=== PATIENT | male | born 1970 | race Caucasian/White ===

== ENCOUNTER 2018-06-17 03:38 | Emergency (ER) | payer OTHER, SELFPAY ==
[2018-06-17 03:46] VITALS: BP 195/120; PULSE 84; RESP 18; TEMP 36.8; O2SAT 100; BMI 34.0
--- NOTE | 2018-06-17 03:48 | ED_ITS ---
HPI - General Adult General Chief complaint: Back Pain/Injury Stated complaint: SEVERE BACK PAIN Time Seen by Provider: 06/17/18 03:39 Source: patient Mode of arrival: ambulatory Limitations: no limitations History of Present Illness HPI narrative: Otherwise healthy 48-year-old male here for evaluation of right- sided flank and abdominal pain. Stated that last evening and just did not feel very well. Had vague right-sided pain. Some nausea. No vomiting. Has episodes where he gets more intense then decreases. Took some Motrin just prior to arrival. States he has had some urinary hesitancy. No prior history kidney stones. No fevers. No rashes. No prior abdominal surgeries. Related Data Previous Rx's Medication Instructions Recorded hydrocodone-acetaminophen [[place]] 1 tab PO Q4-6H PRN #7 tab 06/17/18 ondansetron 4 mg PO Q6-8H PRN #14 tab 06/17/18 Allergies Allergy/AdvReac Type Severity Reaction Status Date / Time NEOPRENE Allergy Severe HIVES AT Uncoded 10/06/17 12:14 CONTACT SITE PENICILLIN Allergy Severe RASH AND Uncoded 10/06/17 12:14 HIVES ALL OVER BODY Review of Systems Constitutional Denies fever(s) Cardiovascular Denies chest pain and Denies dyspnea Respiratory Denies dyspnea Gastrointestinal Gastrointestinal: Reports abdominal pain, Reports nausea and Denies vomiting Genitourinary Denies dysuria, Reports flank pain and Reports urinary hesitancy Integumentary/Breasts Denies rash PFSH Medical History Healthy adult (Acute) Surgical History No pertinent past surgical history (Acute) Social History Smoking Status: Never smoker Exam Initial Vital Signs Initial Vital Signs: Vital Signs Temperature 98.2 F 06/17/18 03:46 Pulse Rate 84 06/17/18 03:46 Respiratory Rate 18 06/17/18 03:46 Blood Pressure 195/120 H 06/17/18 03:46 Pulse Oximetry 100 06/17/18 03:46 Const General: cooperative, healthy appearing, well developed, well groomed and No acute distress Orientation: alert and awake HENMT Head: normal to inspection and normocephalic Resp Effort & Inspection: normal respiratory effort Auscultation: clear to auscultation bilaterally Cardio Rate: regular rate Rhythm: regular rhythm Pulses: radial pulses present GI Inspection: non-distended Palpation: soft and No tender Back/Spine/Pelvis Back: No CVA tenderness Skin Rashes: no rashes Neuro General: alert and awake Extrem General: normal to inspection and capillary refill normal Psych Appearance: grossly normal and well kempt Course Orders Ordered: ED Orders 06/17/18 03:50 Urine Microscopic Stat 06/17/18 03:58 CT kidney ureter bladder (KUB) Stat 06/17/18 04:10 Basic Metabolic Panel Stat Complete Blood Count AUTO DIFF Stat Discontinued Medications Lidocaine HCl 7.8 ml/ Sodium (Chloride) 57.8 mls @ 346.8 mls/hr IV NOW ONE Stop: 06/17/18 04:39 Last Infusion: 06/17/18 05:09 Dose: 0 mls/hr Admin: 06/17/18 04:53 Dose: 346.8 mls/hr Ketorolac Tromethamine (Toradol) 30 mg IV NOW ONE Stop: 06/17/18 04:39 Last Admin: 06/17/18 04:42 Dose: 30 mg Ondansetron HCl (Zofran) 4 mg IV NOW ONE Stop: 06/17/18 04:39 Last Admin: 06/17/18 04:42 Dose: 4 mg Vital Signs - 8 hr 06/17/18 03:46 06/17/18 04:32 06/17/18 05:10 Temperature 98.2 F Pulse Rate 84 78 Respiratory Rate 18 16 Blood Pressure 195/120 H Blood Pressure [Right Arm] 174/104 H 157/108 H Pulse Oximetry 100 98 Medical Decision Making Lab Data Lab results reviewed: Yes I reviewed the patient's lab results. Result diagrams: 06/17/18 04:10 06/17/18 04:10 Lab Results 06/17/18 06/17/18 06/17/18 Range/Units 03:50 04:10 04:10 WBC 11.6 H (4.5-11.0) X10^3/uL RBC 5.39 (4.5-5.9) X10^6/uL Hgb 16.0 (13.5-17.5) g/dL Hct 47.4 (41-53) % MCV 87.9 (80-100) fL MCH 29.6 (26-34) PG MCHC 33.7 (30-36) % RDW 13.6 (11.6-14.8) % Plt Count 220 (150-400) X10^3/uL Neut % (Auto) 74.0 (50-75) % Lymph % (Auto) 13.0 L (25-40) % [place] % (Auto) 10.3 (3-14) % Eos % (Auto) 2.3 (2-4) % Baso % (Auto) 0.4 (0-2) % Neut # (Auto) 8600 H (8239-7988) /uL Sodium 142 (137-145) mmol/L Potassium 4.1 (3.4-5.1) mmol/L Chloride 105 (98-107) mmol/L Carbon Dioxide 24 (22-32) mmol/L BUN 24 H (9-20) mg/dL Creatinine 1.30 H (0.66-1.25) mg/dL Estimated GFR 58.9 L (>60) mL/min BUN/Creatinine Ratio 18.5 (6-22) Glucose 109 H (70-100) mg/dL Calcium 9.6 (8.4-10.2) mg/dL Urine RBC 1-5/hpf (0-5/HPF) Urine WBC None seen (0-5/HPF) Urine Bacteria None seen (None) Ur Culture Indicated? Cult not indicated Micro UA Comment Not Reportable Urine Dip Bedside Urine Glucose Negative Bedside Urine Bilirubin - Negative Bedside Urine Ketone - Negative Urine Specific [place] 1.025 Bedside Urine Occult Blood ++ Bedside Urine pH 6.0 Bedside Urine Urobilinogen - Negative Bedside Urine Nitrite - Negative Bedside Urine Leukocytes - Negative Esterase Point of care testing: Urine Dip Bedside Urine Glucose Negative Bedside Urine Bilirubin - Negative Bedside Urine Ketone - Negative Urine Specific [place] 1.025 Bedside Urine Occult Blood ++ Bedside Urine pH 6.0 Bedside Urine Urobilinogen - Negative Bedside Urine Nitrite - Negative Bedside Urine Leukocytes - Negative Esterase Imaging Data CT scan - abdomen: Radiologist's impression: 7 mm mild to moderate obstructing stone of the right mid ureter. Additional nonobstructing stone in the right kidney. Bilateral renal cysts. Apparent esophageal wall thickening may be artifact, cannot rule out esophagitis. Diverticulosis without diverticulitis. Normal appendix MDM Narrative Medical decision making narrative: CT scan shows right-sided mid ureter stone. This does fit his symptoms. His blood in his urine but no signs of infection. Has a slight bump in his creatinine. I do not feel that an urgent consult to Urology is warranted. He was given a strainer in a cup to see if he can catch the stone at home. Will send home with nausea medication and pain medication. He was given return precautions. He expressed understanding and agreement with plan. Discharge Plan Departure Patient Disposition: Home Clinical Impression: Renal colic Instructions: DI for Kidney Stones Activity Restrictions/Additional Instructions: Use the nausea medication and the pain medication as directed. Expect some discomfort as the stone makes its way down into your bladder and then out. Return to the emergency department for any new symptoms, fevers, pain that is not controlled, vomiting that is not controlled, inability to urinate or any other concerning symptoms. Prescriptions: New hydrocodone-acetaminophen [[place]] 5-325 mg tablet 1 tab PO Q4-6H PRN (Reason: pain) Qty: 7 RF: 0 ondansetron 4 mg tablet,disintegrating 4 mg PO Q6-8H PRN (Reason: nausea and vomiting) Qty: 14 RF: 0
--- NOTE | 2018-06-17 03:58 | DI.CT.S_ITS ---
PROCEDURE: CT KIDNEY URETER BLADDER (KUB) INDICATIONS: Right sided pain concern for stones TECHNIQUE: Noncontrast 5 mm thick sections acquired from the diaphragms to the symphysis. 5 mm thick coronal and sagittal reformats were then performed. For radiation dose reduction, the following was used: automated exposure control, adjustment of mA and/or kV according to patient size. COMPARISON: None. FINDINGS: Image quality: Excellent. Lung bases: Lung bases are clear. Heart size is normal. There is mild thickening of the distal esophagus. Urinary system: There are multiple bilateral renal cysts, the largest measuring up to 3.9 cm and the right kidney. There is mild right perinephric fat stranding. There is a 7 mm obstructing stone within the mid right ureter, resulting in moderate right hydronephrosis. There is an additional punctate nonobstructing nephroliths in the inferior right kidney. Bladder is unremarkable. Other solid organs: Liver is normal in size. Gallbladder is unremarkable. Pancreas is normal in contours. Spleen is normal in size. No adrenal nodules. Peritoneum and bowel: There is colonic diverticulosis without evidence of acute diverticulitis. Unenhanced bowel loops demonstrate normal wall thickness and caliber. No free fluid or air. Normal and is best seen on axial image 62 of series 2. Nodes and vessels: No retroperitoneal or mesenteric adenopathy by size criteria. Aorta and inferior vena cava are normal in caliber. Abdominal wall: There is a small 1.0 cm fat-containing umbilical hernia. Pelvis: No free pelvic fluid. There are small left greater than right fat-containing inguinal hernias. Bones: Mild multilevel degenerative changes of the spine. IMPRESSION: 1. 7 mm obstructing stone in the mid right ureter resulting in moderate right hydronephrosis. Additional punctate nonobstructing nephroliths in the inferior pole of the right kidney. 2. Mild distal esophageal wall thickening may be artifactual, but cannot rule out esophagitis. This report is concordant with the overnight [facility] preliminary radiology report of Dr. Maria Fernanda Estrella. Dictated by: Yaw Grossman M.D. on 06/17/2018 at 10:38 Approved by: Yaw Grossman M.D. on 06/17/2018 at 10:45
[2018-06-17 04:00] LABS: Bacteria Urine None Seen; WBC Urine None Seen (0-5/HPF)
[2018-06-17 04:10] LABS: Culture Indicated Urine Cult Not Indicated; RBC Urine 1-5/HPF (0-5/HPF)
[2018-06-17 04:21] LABS: Add Manual Diff / Slide Review NO; Basophils Percent Auto 0.4 % (0-2); Eosinophils Percent Auto 2.3 % (2-4); Hematocrit 47.4 % (41-53); Mean Corpuscular HGB Conc 33.7 % (30-36); Mean Corpuscular Hemoglobin 29.6 PG (26-34); Mean Corpuscular Volume 87.9 fL (80-100); Monocytes Percent Auto 10.3 % (3-14); Neutrophils Absolute Auto 8600 /uL (1500-7000); Platelet Count 220 X10^3/uL (150-400); Red Blood Cell Count 5.39 X10^6/uL (4.5-5.9); Red Cell Distribution Width 13.6 % (11.6-14.8); White Blood Cell Count 11.6 X10^3/uL (4.5-11.0)
[2018-06-17 04:32] VITALS: BP 174/104
[2018-06-17] MEDS: KETOROLAC 60 MG/2 ML VIAL 30 MG IV (04:42)
[2018-06-17] MEDS: ONDANSETRON 4 MG/2 ML INJ IV (04:42)
[2018-06-17 04:45] LABS: Blood Urea Nitrogen 24 mg/dL (9-20); Carbon Dioxide 24 mmol/L (22-32); Chloride 105 mmol/L (98-107); Potassium 4.1 mmol/L (3.4-5.1); Sodium 142 mmol/L (137-145)
[2018-06-17 04:46] LABS: BUN Creatinine Ratio 18.5 (6-22); Calcium 9.6 mg/dL (8.4-10.2); Estimated Glomerular Filt Rate 58.9 mL/min (>60); Glucose 109 mg/dL (70-100); HEMOLYSIS < 15 (0-50)
[2018-06-17] MEDS: LIDOCAINE 2% 7.8 ML in SODIUM CHLORIDE 0.9% 50 ML 346.8 ML IV (04:53)
[2018-06-17 05:10] VITALS: BP 157/108; PULSE 78; RESP 16; O2SAT 98
[2018-06-17 05:41] VITALS: BP 159/103; PULSE 73; RESP 16; TEMP 36.9; O2SAT 98
== END 2018-06-17 05:43 | disposition home or self-care (01) ==
PROVIDERS: Emergency Provider Emergency Medicine
DX: N23 Unspecified renal colic (principal)
CPT/HCPCS: 74176; 80048; 81003; 81015; 85025; 96365; 96375; 99283; 99284; J1885; J2405

== ENCOUNTER → 2018-07-11 14:32 | Outpatient (CLI) | payer OTHER, SELFPAY ==
--- NOTE | 2018-07-11 | DI.CT.S_ITS ---
PROCEDURE: CT KIDNEY URETER BLADDER (KUB) INDICATIONS: Calculus of ureter TECHNIQUE: Noncontrast 5 mm thick sections acquired from the diaphragms to the symphysis. 5 mm thick coronal and sagittal reformats were then performed. For radiation dose reduction, the following was used: automated exposure control, adjustment of mA and/or kV according to patient size. COMPARISON: [facility], CT, CT KIDNEY URETER BLADDER (KUB), 06/17/2018, 3:58. FINDINGS: Image quality: Excellent. Lung bases: Lung bases are clear. Heart size is normal. Urinary system: Both kidneys are normal in size. No kidney stones are found within the collecting system of either kidney currently but there is moderate hydronephrosis and hydroureter on the right extending to an impacted distal ureteral stone, now located more inferiorly within the right ureter below the area of the junction of the middle and distal thirds of the right ureter. This calculus is better visualized than on the prior study and measures up to 6 x 8 mm. A small immediately adjacent 1.5 mm calculus can be seen just above the dominant calculus. No left-sided hydronephrosis or perinephric fat stranding. the left ureter appearsnon-dilated throughout its expected course. Bladder wall thickness is normal; no calcified bladder stones. Note is made of a exophytic lateral right mid kidney renal cortical rounded structure that is higher in density than the urine within the dilated collecting system. This was previously present and measures up to 3.4 cm. The calculus measures 905 Hounsfield units. Other solid organs: Liver is normal in size. Gallbladder appears normal. Pancreas is normal in contours. Spleen is normal in size. No adrenal nodules. Peritoneum and bowel: Unenhanced bowel loops demonstrate normal wall thickness and caliber. No free fluid or air. Nodes and vessels: No retroperitoneal or mesenteric adenopathy by size criteria. Aorta and inferior vena cava are normal in caliber. Abdominal wall: No ventral hernias. Pelvis: No free pelvic fluid. No inguinal hernias or adenopathy. Bones: No suspicious bony lesions. No vertebral body compression fractures. IMPRESSION: The calculus within the right ureter is now longitudinally oriented and better measured, documented as 6 x 8 mm, and with the radiodensity of 905 Hounsfield units. A stone of this size generally will not pass spontaneously without urologic intervention. Urologist consultation is recommended. The stone has only slightly migrated inferiorly from its position 06/17/18. As discussed above there is a 1.5 mm calculus immediately adjacent to the proximal tip of the impacted calculus, which is nonobstructive. Moderate hydronephrosis and hydroureter on the right remains present. The right mid kidney contains an exophytic 3.4 cm rounded structure that clearly is higher than urine in the radiodensity and might represent coincidental finding of a complex cyst or even a cystic neoplasm. Ultrasound evaluation at this time is recommended. Followup contrast enhanced CT or MR scan may become necessary. Dictated by: Paulo Saenz M.D. on 07/11/2018 at 16:22 Approved by: Paulo Saenz M.D. on 07/11/2018 at 16:48
== END ==
PROVIDERS: Family Provider Urology; PCP Internal Medicine; Visit Provider Internal Medicine
DX: N13.2 Hydronephrosis with renal and ureteral calculous obstruction (principal)
CPT/HCPCS: 74176

== ENCOUNTER → 2018-09-09 10:00 | Outpatient (CLI) | payer OTHER, SELFPAY ==
--- NOTE | 2018-09-09 | DI.CT.S_ITS ---
PROCEDURE: CT ABDOMEN WO/W CON INDICATIONS: Other specified disorders of kidney and ureter TECHNIQUE: Optional 5 mm thick noncontrast images acquired from the diaphragm to the iliac crests. After the administration of intravenous contrast, 5 mm thick images again acquired from the diaphragm to the iliac crests in the arterial and urographic phases. 5 mm thick coronal and sagittal reformats were then acquired. For radiation dose reduction, the following was used: automated exposure control, adjustment of mA and/or kV according to patient size. COMPARISON: [facility], CT, CT KIDNEY URETER BLADDER (KUB), 07/11/2018, 14:31. [facility], CT, CT KIDNEY URETER BLADDER (KUB), 06/17/2018, 3:58. FINDINGS: Image quality: Excellent. Lung bases: Lung bases are clear. Heart size is normal. Genitourinary: This is a 3.5 x 4.0 cm cyst in the mid zone of the right kidney, which demonstrates CT density 16 HU. There is subtle minimal nodularity in the clavicle no enhancement consistent with a Bosniak 2F lesion. Smaller cysts are present in kidneys bilaterally with CT density ~ 10 HU and demonstrate no postcontrast enhancement. Other solid organs: Liver is normal in size and enhancement. Gallbladder is normal. Biliary system is non dilated. Pancreas enhances normally. Spleen is normal in size and enhancement. No adrenal nodules. Peritoneum and bowel: Unenhanced bowel loops are normal in wall thickness and caliber. No free fluid or air. Nodes and vessels: No retroperitoneal or mesenteric adenopathy by size criteria. Aorta and inferior vena cava are normal in caliber. Bones: No suspicious bony lesions. No vertebral body compression fractures. Miscellaneous: No ventral hernias. IMPRESSION: 1. A 3.5 x 4.0 cm Bosniak category 2F cyst in the mid zone of the right kidney. A followup CT is recommended in 6-12 months 2. Smaller benign cysts are noted in kidneys bladder. Dictated by: Ros Del Toro M.D. on 09/09/2018 at 12:50 Approved by: Ros Del Toro M.D. on 09/09/2018 at 13:59
== END ==
PROVIDERS: PCP Internal Medicine; Visit Provider Urology
DX: N28.89 Other specified disorders of kidney and ureter (principal); N28.1 Cyst of kidney, acquired
CPT/HCPCS: 74170; Q9967

== ENCOUNTER → 2019-03-17 07:46 | Outpatient (CLI) | payer OTHER, SELFPAY ==
[2019-03-17 09:35] LABS: Cholesterol 159 mg/dL (140-199); HDL Cholesterol 32 mg/dL (40-60); LDL Cholesterol Calculated 109 mg/dL (<100); Triglycerides 89 mg/dL (35-150)
== END ==
PROVIDERS: PCP Internal Medicine; Visit Provider Internal Medicine
DX: Z13.220 Encounter for screening for lipoid disorders (principal)
CPT/HCPCS: 80061

== ENCOUNTER → 2019-08-11 09:21 | Outpatient (CLI) | payer OTHER, SELFPAY ==
[2019-08-11 09:50] LABS: BUN Creatinine Ratio 21.1 (6-22); Blood Urea Nitrogen 19 mg/dL (9-20); Calcium 9.1 mg/dL (8.4-10.2); Carbon Dioxide 25 mmol/L (22-32); Chloride 107 mmol/L (98-107); Estimated Glomerular Filt Rate > 60.0 mL/min (>60); Glucose 108 mg/dL (70-100); HEMOLYSIS < 15 (0-50); Potassium 4.2 mmol/L (3.4-5.1); Sodium 141 mmol/L (137-145)
--- NOTE | 2019-08-11 10:10 | DI.CT.S_ITS ---
PROCEDURE: CT ABDOMEN WO/W CON INDICATIONS: RENAL MASS TECHNIQUE: Optional 5 mm thick noncontrast images acquired from the diaphragm to the iliac crests. After the administration of intravenous contrast, 5 mm thick images again acquired from the diaphragm to the iliac crests in the arterial and urographic phases. 5 mm thick coronal and sagittal reformats were then acquired. For radiation dose reduction, the following was used: automated exposure control, adjustment of mA and/or kV according to patient size. COMPARISON: [facility], CT, CT ABDOMEN WO/W CON, 09/09/2018, 10:17. [facility], CT, CT KIDNEY URETER BLADDER (KUB), 06/17/2018, 3:58. [facility], CT, CT KIDNEY URETER BLADDER (KUB), 07/11/2018, 14:31. FINDINGS: Image quality: Excellent. Lung bases: Lung bases are clear. Heart size is normal. A small hiatal hernia is incidentally noted. Genitourinary: Bilateral nonenhancing renal cysts are seen. Within the largest cyst in the right kidney laterally, there is a small amount of layering debris, as on series 4 image 43. This is unchanged compared to the prior examination. The cysts otherwise demonstrate a simple appearance. The kidneys demonstrate no size. There is no hydronephrosis. No solid appearing masses are seen. No stones are seen on precontrast imaging. When filled with contrast, the renal calyces demonstrate a normal appearance. The visualized ureters demonstrate an unremarkable appearance. Other solid organs: Liver is normal in size and enhancement. Gallbladder wall does not appear thickened. Biliary system is non dilated. Pancreas enhances normally. Spleen is normal in size and enhancement. No adrenal nodules. Peritoneum and bowel: Unenhanced bowel loops are normal in wall thickness and caliber. No free fluid or air. Nodes and vessels: No retroperitoneal or mesenteric adenopathy by size criteria. Aorta and inferior vena cava are normal in caliber. Bones: No suspicious bony lesions. No vertebral body compression fractures. Miscellaneous: No ventral hernias. IMPRESSION: There is stable layering debris seen within the largest of right renal cysts. This is considered to be a Bosniak caliber at 2F cyst. Please consider a followup renal mass protocol CT in 12 months. Simple appearing renal cysts are seen elsewhere. Incidental note is made of: Small hiatal hernia Dictated by: Raúl Myrick M.D. on 08/11/2019 at 10:47 Approved by: Raúl Myrick M.D. on 08/11/2019 at 10:50
== END ==
PROVIDERS: PCP Internal Medicine; Referring Provider Urology; Visit Provider Urology
DX: N28.89 Other specified disorders of kidney and ureter (principal); N28.1 Cyst of kidney, acquired
CPT/HCPCS: 36415; 74170; 80048; Q9967

== ENCOUNTER → 2020-01-29 10:36 | Outpatient (CLI) | payer OTHER, SELFPAY ==
--- NOTE | 2020-01-29 | DI.US.S_ITS ---
PROCEDURE: US RENAL COMPLETE INDICATIONS: DISORDERS OF KIDNEYS AND URETERS TECHNIQUE: Real-time scanning was performed of the kidneys and bladder, with image documentation. COMPARISON: [facility], CT, CT ABDOMEN WO/W CON, 08/11/2019, 10:05. FINDINGS: Kidneys: Kidneys are normal in size. Right kidney measures 13.4 cm long; left kidney measures 12.5 cm long. Right renal cortical thickness is 2 cm; left renal cortical thickness is 2 cm. Renal cortical echotexture is normal. No hydronephrosis or nephrolithiasis. No suspicious solid mass lesions. The right kidney demonstrates a lobulated appearance, particularly superiorly, which may be related to scarring. Bilateral renal cysts are seen. The largest on the right measures up to 3.5 cm. The largest on the left measures up to 3.4 cm. Bladder: Pre-void bladder volume is 87 mL. No postvoid measurement was obtained. Pre-void images demonstrate no intraluminal masses or stones. The bladder demonstrates a thickened and trabeculated appearance. On pre-void images, both ureteral jets are noted with color Doppler interrogation. (Of note, ureteral jets may not be detectable in up to 25% of cases due to insufficient differences in specific gravity between ureteral and bladder urine). Miscellaneous: No free pelvic fluid. The prostate is prominent. IMPRESSION: No significant kidney abnormality is seen. Note is made of bilateral simple appearing renal cysts. Thickened, trabeculated appearance of the bladder with a prominent prostate. Please consider bladder outlet obstruction. Dictated by: Raúl Myrick M.D. on 01/29/2020 at 12:30 Approved by: Raúl Myrick M.D. on 01/29/2020 at 12:32
== END ==
PROVIDERS: PCP Internal Medicine; Referring Provider Urology; Visit Provider Urology
DX: N28.89 Other specified disorders of kidney and ureter (principal); N28.1 Cyst of kidney, acquired
CPT/HCPCS: 76770

== ENCOUNTER → 2020-07-24 09:42 | Outpatient (CLI) | payer OTHER, SELFPAY ==
[2020-07-24 11:42] LABS: COVID19 -Nasal RAPID Negative (Negative)
== END ==
PROVIDERS: PCP Internal Medicine; Visit Provider Nurse Practitioner
DX: R05 Cough (principal); R68.83 Chills (without fever); Z20.822 Contact with and (suspected) exposure to COVID-19
CPT/HCPCS: 87635

== ENCOUNTER → 2020-09-16 12:05 | Outpatient (CLI) | payer OTHER, SELFPAY ==
--- NOTE | 2020-09-16 12:08 | DI.CT.S_ITS ---
PROCEDURE: CT ABDOMEN WO/W CON INDICATIONS: Cyst of kidney, acquired TECHNIQUE: Optional 5 mm thick noncontrast images acquired from the diaphragm to the iliac crests. After the administration of intravenous contrast, 5 mm thick images again acquired from the diaphragm to the iliac crests in the arterial and urographic phases. 5 mm thick coronal and sagittal reformats were then acquired. For radiation dose reduction, the following was used: automated exposure control, adjustment of mA and/or kV according to patient size. COMPARISON: [facility], CT, CT KIDNEY URETER BLADDER (KUB), 06/17/2018, 3:58. [facility], CT, CT ABDOMEN WO/W CON, 08/11/2019, 10:05. [facility], CT, CT ABDOMEN WO/W CON, 09/09/2018, 10:17. FINDINGS: Image quality: Excellent. Lung bases: Lung bases are clear. Heart size is normal. Genitourinary: There are bilateral renal cortical cysts, and the right lateral mid kidney cyst contains a small amount of internal debris layering along its border, inferiorly. This was previously present. No nodular or solid component is seen. Other solid organs: Liver is normal in size and enhancement. Gallbladder appears normal . Biliary system is non dilated. Pancreas enhances normally. Spleen is normal in size and enhancement. No adrenal nodules. Peritoneum and bowel: Unenhanced bowel loops are normal in wall thickness and caliber. No free fluid or air. Nodes and vessels: No retroperitoneal or mesenteric adenopathy by size criteria. Aorta and inferior vena cava are normal in caliber. Bones: No suspicious bony lesions. No vertebral body compression fractures. Miscellaneous: No ventral hernias. IMPRESSION: A small amount of inferior right mid kidney renal cortical cyst debris appears present with reference to prior CT KUB scanning in 2017 and 2018. Given absence of change management coordinator time the likelihood of renal cortical neoplasm is considered very low. If clinically desired survey imaging by ultrasound could be obtained at yearly intervals. Dictated by: Paulo Saenz M.D. on 09/16/2020 at 13:44 Approved by: Paulo Saenz M.D. on 09/16/2020 at 13:51
== END ==
PROVIDERS: PCP Internal Medicine; Referring Provider Urology; Visit Provider Urology
DX: N28.1 Cyst of kidney, acquired (principal)
CPT/HCPCS: 74170; Q9967

== ENCOUNTER → 2020-09-23 08:28 | Outpatient (CLI) | payer OTHER, SELFPAY ==
[2020-09-23 09:22] LABS: Alanine Aminotransferase 22 IU/L (<50); Albumin 4.3 g/dL (3.5-5.0); Albumin Globulin Ratio 1.6 (1.0-2.8); Alkaline Phosphatase 73 U/L (38-126); Aspartate Aminotransferase 20 IU/L (17-59); BUN Creatinine Ratio 24.1 (6-22); Bilirubin Total 0.4 mg/dL (0.2-1.3); Blood Urea Nitrogen 21 mg/dL (9-20); Carbon Dioxide 25 mmol/L (22-32); Chloride 107 mmol/L (98-107); Cholesterol 157 mg/dL (140-199); Estimated Glomerular Filt Rate > 60.0 mL/min (>60); Globulin 2.7 g/dL (1.7-4.1); Glucose 105 mg/dL (70-100); HDL Cholesterol 29 mg/dL (40-60); HEMOLYSIS < 15 (0-50); LDL Cholesterol Calculated 110 mg/dL (<100); Potassium 4.3 mmol/L (3.4-5.1); Sodium 139 mmol/L (137-145); Triglycerides 92 mg/dL (35-150)
[2020-09-24 05:36] LABS: PSA, Total 0.5 ng/mL (0.0-4.0)
== END ==
PROVIDERS: PCP Internal Medicine; Referring Provider Internal Medicine; Visit Provider Internal Medicine
DX: Z00.00 Encounter for general adult medical examination without abnormal findings (principal); R73.01 Impaired fasting glucose; E78.5 Hyperlipidemia, unspecified
CPT/HCPCS: 36415; 80053; 80061; 84153; 84154

== ENCOUNTER → 2020-11-11 08:17 | Outpatient (CLI) | payer OTHER, SELFPAY ==
[2020-11-11 10:03] LABS: Alanine Aminotransferase 21 IU/L (<50); Albumin 4.1 g/dL (3.5-5.0); Albumin Globulin Ratio 1.6 (1.0-2.8); Alkaline Phosphatase 74 U/L (38-126); Aspartate Aminotransferase 21 IU/L (17-59); BUN Creatinine Ratio 19.3 (6-22); Bilirubin Total 0.3 mg/dL (0.2-1.3); Blood Urea Nitrogen 17 mg/dL (9-20); Carbon Dioxide 24 mmol/L (22-32); Chloride 107 mmol/L (98-107); Estimated Glomerular Filt Rate > 60.0 mL/min (>60); Globulin 2.6 g/dL (1.7-4.1); Glucose 101 mg/dL (70-100); HEMOLYSIS < 15 (0-50); Sodium 138 mmol/L (137-145); Total Protein 6.7 g/dL (6.3-8.2)
== END ==
PROVIDERS: PCP Internal Medicine; Referring Provider Urology; Visit Provider Urology
DX: N28.1 Cyst of kidney, acquired (principal)
CPT/HCPCS: 36415; 80053

== ENCOUNTER 2025-05-30 13:55 | Emergency (ER) | payer OTHER, SELFPAY ==
[2025-05-30 14:20] VITALS: BP 167/100; PULSE 64; RESP 18; TEMP 36.6; O2SAT 99
--- NOTE | 2025-05-30 14:29 | DI.RAD.S_ITS ---
PROCEDURE: XR FINGER LT MIN 2V INDICATIONS: injury TECHNIQUE: PA hand, 2 views of the middle finger acquired. COMPARISON: None. FINDINGS: Bones: Bony detail is obscured by overlying dressing material. Suspected cortical abnormality at the distal tuft. No suspicious bony lesions. Soft tissues: Skin irregularity and edema at the distal middle finger obscured by overlying dressing material. IMPRESSION: Suspected osseous irregularity at the tuft of the 3rd distal phalanx with overlying soft tissue edema. Approved by: Abdi Candelaria M.D. on 05/30/2025 at 15:48
[2025-05-30] MEDS: ACETAMINOPHEN 325 MG TABLET 975 MG PO (14:34)
[2025-05-30] MEDS: TET,DIPH,PERTUSS(ACELL),VAC/PF 0.5 ML SYRINGE IM (14:35)
[2025-05-30] MEDS: MORPHINE 4 MG/ML INJ 2 MG IM (16:25)
--- NOTE | 2025-05-30 16:34 | ED_ITS ---
HPI - Trauma General Chief Complaint: Extremity Injury, Upper Stated Complaint: Laceration/Lt hand Time Seen by Provider: 05/30/25 14:05 Source: patient Mode of arrival: Ambulatory History of Present Illness HPI narrative: 54-year-old male with past medical history of hypertension, works as a machinist supervisor outside, had an accidental fingertip injury with a large metal drill bit immediately prior to arrival. Patient with injury just to the distal tip of the 3rd digit of the left hand. Related Data Previous Rx's ?Medication ?Instructions ?Recorded hydrocodone 5 mg-acetaminophen 325 1 tab PO Q4-6H PRN pain #7 tabs 06/17/18 mg tablet (Pinola) ondansetron 4 mg disintegrating 4 mg PO Q6-8H PRN naus ea and 06/17/18 tablet vomiting #14 tabs Allergies Allergy/AdvReac Type Severity Reaction Status Date / Time NEOPRENE Allergy Severe HIVES AT Uncoded 05/30/25 14:24 CONTACT SITE PENICILLIN Allergy Severe RASH AND Uncoded 05/30/25 14:24 HIVES ALL OVER BODY Review of Systems Review of Systems ROS Unobtainable: All systems reviewed & are unremarkable except as noted in HPI and below Patient History Medical History (Updated 05/30/25 @ 16:40 by Vikram Alvarez MD) Healthy adult Surgical History (Updated 06/17/18 @ 05:07 by Truman Larsen DO) No pertinent past surgical history Social History Smoking Status: Never smoker Smoking Status: Never smoker alcohol intake frequency: a few times a month Exam Narrative Exam Narrative: Left 3rd digit with partial amputation of the distal tip involving the nail and the very distal tip of the finger. Patient with completely appropriate ability to squeeze hand, neurovascularly intact. Initial Vital Signs Initial Vital Signs: Vital Signs Temperature 98 F 05/30/25 14:20 Pulse Rate 64 05/30/25 14:20 Respiratory Rate 18 05/30/25 14:20 Blood Pressure 167/100 H 05/30/25 14:20 Pulse Oximetry 99 05/30/25 14:20 Oxygen Delivery Method Room Air 05/30/25 14:20 Const General: cooperative, healthy appearing, comfortable, well developed and well hydrated Nutritional Appearance: average body habitus HENMT Head: normal to inspection Ears: external ears normal Nose: external nose normal and nares normal Face and sinus: sinuses nontender, face symmetric, ecchymosis not on the right, not on the left and not bilaterally, erythema not on the right, not on the left and not bilaterally and edema not on the right, not on the left and not bilaterally Mouth: lip normal Eyes General: Yes appearance normal, both eyes and all related structures Eyelids: eyelids normal Sclera: sclerae normal Pupils: PERRL Neck Neck: normal visual inspection Resp Effort & Inspection: normal respiratory effort and able to speak in complete sentences Cardio Rate: regular rate Rhythm: regular rhythm Pulses: radial pulses present GI Inspection: normal to inspection and non-distended General: bimanual renal exam normal bilaterally Back/Spine/Pelvis Back: normal to inspection Skin General: no rashes or lesions noted Neuro General: patient alert, patient awake, patient oriented x3, gait normal, moves all extremities, normal light touch, pain and propioception, no focal motor deficits and CN's II-XI intact bilaterally Cognition: normal cognition Speech: speech normal Gait: normal gait Motor: muscle tone normal throughout Sensory Exam: no sensory deficits noted Extrem General: normal to inspection Psych Appearance: grossly normal Mental Status: mental status grossly normal Speech and Movement: speech and movement normal Mood: congruent mood Attitude: cooperative Thought Process: normal Thought Content: normal Judgment: judgment good Procedures Misc Procedure Additional Comments: Repair of laceration: [cm] Verbal consent was obtained. [See Exam section for a description of the wound.] The area around the wound was cleansed, prepped and draped in a normal manner. [Digital block] anesthesia was performed using [1% lidocaine]. The wound was thoroughly irrigated with normal saline. The wound was carefully explored and [no] foreign bodies were noted. 1 3-0 suture w/ x-stitch to purse string distal tip applied. therefore atient will be thoroughly wrapped and discharge to follow up with Orthopedic surgery. Course Orders Ordered: ED Orders 05/30/25 14:29 XR finger LT min 2V Stat 05/30/25 17:27 Consult to [facility] Stat Urine Drug Screen, Rapid Stat Discontinued Medications Acetaminophen (Acetaminophen 325 Mg Tablet) 975 mg PO NOW ONE Stop: 05/30/25 14:30 Last Admin: 05/30/25 14:34 Dose: 975 mg Documented By: MICKEY Diphtheria/Tetanus/Acell Pertussis (Tet,Diph,Pertuss(Acell),Vac/Pf 0.5 Ml Syringe) 0.5 ml IM .ONCE ONE Stop: 05/30/25 14:30 Last Admin: 05/30/25 14:35 Dose: 0.5 ml Documented By: MICKEY Lidocaine HCl (Lidocaine 1% 20 Ml) 10 ml SUBCUT NOW ONE Stop: 05/30/25 16:17 Last Admin: 05/30/25 16:57 Dose: Not Given Documented By: GREGG Lidocaine/Epinephrine (Lidocaine 1% W/Epi 10ml) 4 ml INJ INTRA-OP ONE Stop: 05/30/25 16:57 Morphine Sulfate (Morphine 4 Mg/Ml Inj) 2 mg IM NOW ONE Stop: 05/30/25 16:15 Last Admin: 05/30/25 16:25 Dose: 2 mg Documented By: MICKEY Vital Signs Vital signs: Vital Signs - 8 hr 05/30/25 14:20 Temperature 98 F Pulse Rate 64 Respiratory Rate 18 Blood Pressure 167/100 H Pulse Oximetry 99 Oxygen Delivery Method Room Air MDM - Trauma MDM Narrative Medical decision making narrative: Pt presents with blunt trauma. CXR considered given possibility of PTX/pulmonary contusion/rib fx, however, deferred due to reassuring history and physical exam. CT brain considered to r/o intracranial hemorrhage/injury/skull fracture, ho wever, deferred due to reassuring history and physical exam. CT C-spine considered to r/o C-spine fx/dislocation/injury, however, deferred due to reassuring history and physical exam. CT ab/pelvis/chest considered to r/o intra-abdominal/intrathoracic injury including pulmonary contusion/PTX/renal injury/colon injury/liver injury/spleen injury, etc. however, deferred due to reassuring history and physical exam. Labs considered to r/o severe anemia, electrolyte abnormality (including hypokalemia, hyperkalemia, hypernatremia, hyponatremia, hyperglycemia, hypoglycemia, etc), thrombocytopenia. However, deferred due to reassuring history and physical exam Digital x-ray obtained to evaluate extent of injury. Critical Care Time Critical Care Time Attestation: Critical Care Time [35] minutes: Critical care time is separate from other billable procedures. This critical care time includes consultation with family and other consulting doctors, review of records, and interpretation of data from labs, EKGs, imaging, etc. Discharge Plan Departure Patient Disposition: Home Clinical Impression: Traumatic amputation of finger of left hand Instructions: DI for Traumatic Finger or Hand Amputation Activity Restrictions/Additional Instructions: Return to the emergency department for any pus drainage, fever, redness at the site, or any other concern. Please return if you have difficulty moving the affected joint, worsening pain after tomorrow, a sudden loss of sensation, or if the affected area becomes cold. Please follow up with Orthopedics, they will call you. If you do not hear by please reach out the [facility]. Take your antibiotics as prescribed. At no physical work involving your right hand until cleared by Orthopedics. Mientras tanto, si la herida empiece a enrojecerse, sacar pus, si tienes fiebre o cualquier otra zion, por favor vuelve a urgencias. Prescriptions: No Action hydrocodone-acetaminophen [Pinola] 5-325 mg tablet 1 tab PO Q4-6H PRN (Reason: pain) Qty: 7 0RF ondansetron 4 mg tablet,disintegrating 4 mg PO Q6-8H PRN (Reason: nausea and vomiting) Qty: 14 0RF Stand Alone Forms: Patient Portal/API
[2025-05-30] MEDS: LIDOCAINE 1% W/EPI 10ML 4 ML INJ (16:58)
[2025-05-30 17:38] LABS: UR Morphine/Opiate cutoff 300 Negative (Negative); Ur Specific Gravity Normal (Normal); Urine MDMA Negative (Negative); Urine Methamphetamines Negative (Negative); Urine Tetrahydrocannabinol Negative (Negative); Urine Tricyclic Antidepressant Negative (Negative)
[2025-05-30 17:52] VITALS: BP 151/95; PULSE 66; RESP 17; O2SAT 97
--- NOTE | 2025-05-30 18:35 | PC.NURSE ---
Verbal order from Dr. Alvarez to write and print pt's a work release note.
== END 2025-05-30 17:54 | disposition home or self-care (01) ==
PROVIDERS: Emergency Provider Emergency Medicine
DX: S68.623A Partial traumatic transphalangeal amputation of left middle finger, initial encounter (principal); W31.89XA Contact with other specified machinery, initial encounter; Y99.0 Civilian activity done for income or pay; Z23 Encounter for immunization
CPT/HCPCS: 12001; 73140; 80305; 90471; 96372; 99284; 90715; J2272